=== PATIENT | female | born 1985 | race African-American/Black ===

== ENCOUNTER 2022-07-22 14:44 | Emergency (ER) | payer SELFPAY ==
[~2022-07-22] VITALS: Ht 162.6 cm; Wt 105.5 kg
[2022-07-22] MEDS ORDERED: cefTRIAXone SODIUM 250 MG VL IM ONE (16:00)
[2022-07-22] MEDS ORDERED: AZITHROMYCIN 250 MG TAB PO ONE (16:00)
[2022-07-22 22:01] LABS: Urine Amorphous Crystal MOD /hpf (None Seen); Urine Bacteria MOD /hpf (None Seen); Urine Blood 1+ /uL (Negative); Urine Mucus MANY (None Seen); Urine Specific Gravity 1.029 (1.001-1.035); Urine WBC 94 /hpf (0 - 5)
[2022-07-22] MEDS ORDERED: CLIN2CRE7 VG (22:24)
[2022-07-22] MEDS ORDERED: ACET-1158 PO (22:24)
[2022-07-22] MEDS ORDERED: PHEN-1044 PO (22:24)
[2022-07-22] MEDS ORDERED: NITR-87 PO (22:24)
[2022-07-22] MEDS ORDERED: MET500T GT (22:24)
[2022-07-22 23:00] VITALS: BP 134/55
[2022-07-23 08:06] LABS: RPR Non Reactive (Non Reactive)
== END 2022-07-22 23:19 | disposition home or self-care (01) ==
LOC: ER 14:44
DX: N39.0 Urinary tract infection, site not specified (principal); N76.0 Acute vaginitis
CPT/HCPCS: 81001; 86592; 87210; 87491; 87591; 96372; 99283; J0696